=== PATIENT | female | born 1990 | race American Indian/Alaskan Native ===

== ENCOUNTER 2018-11-28 08:45 | Emergency (ER) | payer SELFPAY ==
[2018-11-28] MEDS ORDERED: NACL 0.9% 1000 ML 1,000 ML IV ONE (09:15)
[2018-11-28] MEDS ORDERED: ZOFRAN IV ONE (09:15)
[2018-11-28] MEDS ORDERED: NACL 0.9% 1000 ML 1,000 ML ONE (09:20)
[2018-11-28] MEDS ORDERED: ZOFRAN ONE (09:20)
--- NOTE | 2018-11-28 09:27 | Emergency Department Report ---
Pediatric NVD - HPI Chief Complaint: Nausea/Vomiting/Diarrhea Stated Complaint: NAUSEA/VOMITTING Time Seen by Provider: 11/28/18 09:07 Duration: 1 Day Nausea/Vomiting Severity: Moderate Diarrhea Severity: None Pain Location: Suprapubic (joint pain) Severity: Moderate Urine Output: Normal Symptoms: No Listless Behavior, No Bloody diarrhea, No Fever, No Able to Tolerate PO Fluids, No Recent Travel, No Family or Contacts with Similar Symptoms, No Rash Other History: 27-year-old male comes in for nausea vomiting with joint pain abdominal pain for 3 days. Patient admits to nausea increased thirstiness denies any dysuria admits to abdominal pain that's lower. Having vomiting. All started since yesterday medical history 1 para 0 last menstrual period was 11/07/2018. Patient can't recall anything that she is eaten that could've upset her stomach. He does admit that when she has her menses is when she has severe joint pain. ED Review of Systems ROS: Stated complaint: NAUSEA/VOMITTING Other details as noted in HPI Comment: All other systems reviewed and negative Gastrointestinal: abdominal pain, nausea, vomiting Musculoskeletal: arthralgia (joint pain) Pediatric Past Medical History - Surgeries & Procedures Additional Surgical History: CYST REMOVED FROM CHEEK Pediatric N/V/D - Exam General: Vital signs noted. No distress. Alert and acting appropriately. General: Listlessness: No, Lethargy: No, Well Appearing: No Peds HEENT: Rhinorrhea: No, Moist mucus membranes: Yes Peds neck exam: Adenopathy: No, Supple: Yes Lungs: Yes Clear Lung Sounds, Yes Good Air Exchange, No Wheezes, No Stridor, No Cough, No Nasal Flaring, No Retractions, No Use of Accessory Muscles Peds Heart: Heart Murmur: No, Hyperdynamic Precordium: No, Strong Pulses: Yes, Good Capillary Refill: Yes Peds abdomen: Abdominal Tenderness: No, Peritoneal Signs: No, Normal Bowel Soun ds: Yes, Distention: No Skin exam: Rash: No, Edema: No, Normal turgor: Yes ED Course Vital Signs 11/28/18 08:47 Temperature 97.9 F Pulse Rate 70 Respiratory 20 Rate Blood Pressure 134/88 [Right] O2 Sat by Pulse 99 Oximetry ED Medical Decision Making - Lab Data Result diagrams: 11/28/18 09:43 11/28/18 09:43 - Medical Decision Making 27-year-old female comes in for nausea vomiting, abdominal pain for 3 days. Patient was given Reglan normal saline IV Levaquin for what appears to be pyelonephritis. Patient be discharged home Levaquin 500 mg daily for the next 5 days with instructions to increase her fluid intake and advance her diet as tolerated. Patient could have Tylenol or ibuprofen for pain management. Critical care attestation.: If time is entered above; I have spent that time in minutes in the direct care of this critically ill patient, excluding procedure time. ED Disposition Clinical Impression: Pyelonephritis, Morbid obesity with BMI of 45.0-49.9, adult Disposition: DC- TO HOME OR SELFCARE Is pt being admited?: No Does the pt Need Aspirin: No Condition: Stable Instructions: Weight Management (ED), Acute Pyelonephritis (ED), Obesity (ED) Additional Instructions: Complete antibiotics as prescribed. Pain medication as needed. Please increase her water intake by 2-3 L daily. Please void after intercourse. Referrals: PRIMARY CARE, [Referring] - 3-5 Days Forms: Work/School Release Form(ED)
[2018-11-28 10:00] LABS: Basophils % (Auto) 0.3 % (0.0-1.8); Eosinophils % (Auto) 0.1 % (0.0-4.3); Hematocrit 40.5 % (30.3-42.9); Hemoglobin 13.9 gm/dl (10.1-14.3); Lymphocytes # (Auto) 1.7 K/mm3 (1.2-5.4); Lymphocytes % (Auto) 10.2 % (13.4-35.0); Mean Corpuscular HGB Conc 34 % (30-34); Mean Corpuscular Volume 92 fl (79-97); Monocytes % (Auto) 5.9 % (0.0-7.3); Platelet Count 271 K/mm3 (140-440); Red Cell Distribution Width 13.4 % (13.2-15.2)
[2018-11-28 10:18] LABS: Bacteria,Urine 1+ /HPF (Negative); Bilirubin,Urine NEG (Negative); Blood,Urine MOD (Negative); Color,Urine Yellow (Yellow); Mucus,Urine FEW /HPF; Urobilinogen,Urine < 2.0 mg/dL (<2.0)
[2018-11-28 10:23] LABS: Alanine Aminotransferase 15 units/L (7-56); BUN/Creatinine Ratio 16; Blood Urea Nitrogen 14 mg/dL (7-17); Hemolysis Index 12
[2018-11-28] MEDS ORDERED: TORADOL IM ONE (10:52)
[2018-11-28] MEDS ORDERED: REGLAN IV ONE (11:02)
[2018-11-28] MEDS ORDERED: LEVAQUIN 500MG/100ML 500 MG/100 ML BAG IV ONE (11:05)
[2018-11-28 11:13] VITALS: BP 125/72
[2018-11-28] MEDS ORDERED: MORPHINE ONE (11:32)
[2018-11-28] MEDS ORDERED: TORADOL IV ONE (11:36)
[2018-11-28] MEDS ORDERED: MORPHINE IV ONE (11:36)
== END 2018-11-28 13:26 | disposition home or self-care (01) ==
LOC: ED 08:45
DX: N12 Tubulo-interstitial nephritis, not specified as acute or chronic (principal); E66.01 Morbid (severe) obesity due to excess calories; Z68.42 Body mass index [BMI] 45.0-49.9, adult
CPT/HCPCS: 36415; 80053; 81001; 83690; 84702; 85025; 87086; 96361; 96365; 96375; 99283; J1885; J1956; J2270; J2405; J2765; J7030

== ENCOUNTER 2018-11-29 18:56 | Inpatient (IN) | payer OTHER ==
--- NOTE | 2018-11-29 19:15 | Emergency Department Report ---
ED GI Bleed HPI - General Chief complaint: Nausea/Vomiting/Diarrhea Stated complaint: VOMITING BLOOD Time Seen by Provider: 11/29/18 19:01 Source: patient Mode of arrival: Ambulatory Limitations: No Limitations - History of Present Illness Initial comments: Patient is a 28-year-old female that presents emergency room for nausea vomiting and vomiting blood 3 days. Patient states she was seen here yesterday and forgot to mention that to the caregiver. Patient was diagnosed with pyelonephritis and a UTI and given ibuprofen and Levaquin. Patient's symptoms are worsening. Patient states she is not able to hold anything down for 3 days.. MD complaint: gross hematemesis -: Sudden, days(s) Radiation: suprapubic Severity scale (0 -10): 3 Quality: dull Consistency: constant Improves with: none Worsens with: none Associated Symptoms: abdominal pain, nausea, vomiting. denies: epistaxis, fever/chills, headaches, loss of appetite, malaise, easy bruising, rash, other bleeding, shortness of breath, syncope, weakness - Related Data Previous Rx's Medication Instructions Recorded Last Taken Type Ibuprofen [Motrin 800 MG tab] 800 mg PO Q8HR PRN #30 tablet 11/28/18 11/29/18 Rx levoFLOXacin [Levaquin TAB] 500 mg PO QDAY 5 Days #5 tablet 11/28/18 11/29/18 Rx Allergies Allergy/AdvReac Type Severity Reaction Status Date / Time No Known Allergies Allergy Verified 11/28/18 08:47 ED Review of Systems ROS: Stated complaint: VOMITING BLOOD Other details as noted in HPI Constitutional: denies: chills, fever Eyes: denies: eye pain, eye discharge, vision change ENT: denies: ear pain, throat pain Respiratory: denies: cough, shortness of breath, wheezing Cardiovascular: denies: chest pain, palpitations Endocrine: no symptoms reported Gastrointestinal: abdominal pain, nausea, vomiting, hematemesis. denies: diarrhea, melena Genitourinary: denies: urgency, dysuria, discharge Musculoskeletal: denies: back pain, joint swelling, arthralgia Skin: denies: rash, lesions Neurological: denies: headache, weakness, paresthesias Psychiatric: denies: anxiety, depression Hematological/Lymphatic: denies: easy bleeding, easy bruising ED Past Medical Hx - Past Medical History Previous Medical History?: No - Surgical History Past Surgical History?: Yes Additional Surgical History: CYST REMOVED FROM CHEEK - Family History Family history: no significant - Social History Smoking Status: Never Smoker Substance Use Type: None - Medications Home Medications: Home Medications Medication Instructions Recorded Confirmed Last Taken Type Ibuprofen [Motrin 800 MG tab] 800 mg PO Q8HR PRN #30 tablet 11/28/18 11/29/18 11/29/18 Rx levoFLOXacin [Levaquin TAB] 500 mg PO QDAY 5 Days #5 tablet 11/28/18 11/29/18 11/29/18 Rx ED Physical Exam - General Limitations: No Limitations General appearance: alert, in no apparent distress - Head Head exam: Present: atraumatic, normocephalic - Eye Eye exam: Present: normal appearance - ENT ENT exam: Present: mucous membranes moist - Neck Neck exam: Present: normal inspection - Respiratory Respiratory exam: Present: normal lung sounds bilaterally. Absent: respiratory distress, wheezes, rales - Cardiovascular Cardiovascular Exam: Present: regular rate, normal rhythm. Absent: systolic murmur, diastolic murmur, rubs, gallop - GI/Abdominal GI/Abdominal exam: Present: soft, normal bowel sounds. Absent: distended, tenderness, guarding - Extremities Exam Extremities exam: Present: normal inspection - Back Exam Back exam: Present: normal inspection - Neurological Exam Neurological exam: Present: alert, oriented X3 - Psychiatric Psychiatric exam: Present: normal affect, normal mood - Skin Skin exam: Present: warm, dry, intact, normal color. Absent: rash ED Course Vital Signs 11/29/18 11/29/18 11/29/18 19:15 19:46 21:25 Temperature 98.4 F Pulse Rate 60 52 L 62 Respiratory 16 18 14 Rate Blood Pressure 139/84 140/81 [Left] O2 Sat by Pulse 100 100 100 Oximetry - Reevaluation(s) Reevaluation #1: Discussed plan of care and by mouth challenge the patient. Patient was not able to tolerate by mouth challenge. 11/29/18 21:25 Reevaluation #2: Discussed all results with patient. Patient will be admitted to the hospitalist service. Patient agrees to plan of care. 11/29/18 22:52 - Consultations Consultation #1: Discussed case with Dr. Hickman, GI. Dr. Hickman recommends the patient tolerate by mouth intake patient could be discharged home with follow-up with GI as an outpatient. But patient unable to tolerate by mouth challenge, the patient to be admitted to the hospitalist service and Dr. Hickman will see the patient in the morning for an endoscopy and patient nothing by mouth after midnight. 11/29/18 21:14 Consultation #2: Hospitalist consulted for admission. Hospitalist to admit patient. Hospitalist to assume care patient. 11/29/18 22:52 ED Medical Decision Making - Lab Data Result diagrams: 11/29/18 19:26 11/29/18 19:26 - Radiology Data Radiology results: report reviewed CT ABDOMEN AND PELVIS WITHOUT CONTRAST INDICATION: Pelvic pain for 3 to 4 days CONTRAST: Without IV COMPARISON: None available. All CT scans at this location are performed using CT dose reduction for ALARA by means of automated exposure control. NOTE: Resolution is decreased and artifact is introduced by the patient's size. FINDINGS: Lung bases show mild diffuse increased interstitial markings which probably is chronic. Mild scarring is seen in the right base. No pneumoperitoneum is seen. Gallbladder shows probable sludge but no obvious calculi or wall thickening. No biliary dilatation is seen. Pancreas shows no obvious abnormalities. No masses are seen. No evidence of bowel obstruction is noted. Appendix appears within normal limits. Only minimal free fluid is seen in the pelvis. The left ovary appears prominent and likely contains at least 2 cysts measuring up to 0.7 cm each with the ovary measuring approximately 4.1 cm. No urinary tract calculi or evidence of obstruction are seen. No inflammatory changes are noted. No significant abdominal wall hernia is noted. IMPRESSION: 1. Probable left ovarian cysts as above 2. No definite acute abnormalities are seen - Medical Decision Making Patient is a 28-year-old female that presents emergency room with complaints of abdominal pain and nausea vomiting and vomiting blood. Patient states about blood for 3 days. Patient was seen yesterday and diagnosed with pyelonephritis. Patient has been taking ibuprofen and Levaquin. Patient he will need a serious 3.9 and today is 3.1. GI consult and recommends admission for an EGD. Patient admitted to the hospitalist service. patient's labs from yesterday reviewed - Differential Diagnosis opening blood. Abdominal pain.The. UTI. Critical Care Time: Yes Critical care attestation.: If time is entered above; I have spent that time in minutes in the direct care of this critically ill patient, excluding procedure time. Critical Care Time: 45 minutes ED Disposition Clinical Impression: Pyelonephritis, Lower abdominal pain Intractable nausea and vomiting Qualifiers: Vomiting type: unspecified Qualified Code(s): R11.2 - Nausea with vomiting, unspecified Vomiting blood Qualifiers: Nausea presence: with nausea Qualified Code(s): K92.0 - Hematemesis Disposition: 09 OP ADMIT IP TO THIS HOSP Is pt being admited?: Yes Does the pt Need Aspirin: No Condition: Critical Time of Disposition: 22:52
[2018-11-29] MEDS ORDERED: NACL 0.9% 1000 ML 1,000 ML IV ONE (19:17)
[2018-11-29] MEDS ORDERED: ZOFRAN IV ONE (19:17)
[2018-11-29] MEDS ORDERED: ZOFRAN ONE (19:24)
[2018-11-29] MEDS ORDERED: NACL 0.9% 1000 ML 1,000 ML ONE (19:24)
[2018-11-29 19:43] LABS: Basophils % (Auto) 0.4 % (0.0-1.8); Hematocrit 38.3 % (30.3-42.9); Hemoglobin 13.1 gm/dl (10.1-14.3); Lymphocytes # (Auto) 1.7 K/mm3 (1.2-5.4); Lymphocytes % (Auto) 13.5 % (13.4-35.0); Mean Corpuscular HGB Conc 34 % (30-34); Mean Corpuscular Volume 93 fl (79-97); Monocytes # (Auto) 0.6 K/mm3 (0.0-0.8); Monocytes % (Auto) 4.6 % (0.0-7.3); Platelet Count 255 K/mm3 (140-440); Red Blood Count 4.14 M/mm3 (3.65-5.03); Red Cell Distribution Width 13.2 % (13.2-15.2)
[2018-11-29 20:01] LABS: Alanine Aminotransferase 14 units/L (7-56); Albumin 3.8 g/dL (3.9-5); BUN/Creatinine Ratio 12; Blood Urea Nitrogen 12 mg/dL (7-17); Calcium 8.8 mg/dL (8.4-10.2); Hemolysis Index 14
[2018-11-29 20:13] LABS: Bilirubin,Direct < 0.2 mg/dL (0-0.2)
[2018-11-29] MEDS ORDERED: DILAUDID IV ONE (21:19)
[2018-11-29] MEDS ORDERED: MAXIPIME/NS 1 GM/100 ML 1 GM/100 ML BAG IV ONE (21:31)
--- NOTE | 2018-11-29 22:35 | Cat Scan Report ---
CT ABDOMEN AND PELVIS WITHOUT CONTRAST INDICATION: Pelvic pain for 3 to 4 days CONTRAST: Without IV COMPARISON: None available. All CT scans at this location are performed using CT dose reduction for ALARA by means of automated e xposure control. NOTE: Resolution is decreased and artifact is introduced by the patient's size. FINDINGS: Lung bases show mild diffuse increased interstitial markings which probably is chronic. Mil d scarring is seen in the right base. No pneumoperitoneum is seen. Gallbladder shows probable sludge but no obvious calculi or wall thickening. No biliary dilatation is seen. Pancreas shows no obvious a bnormalities. No masses are seen. No evidence of bowel obstruction is noted. Appendix appears within normal limits. Only minimal free fluid is seen in the pelvis. The left ovary appears prominent and li hunter contains at least 2 cysts measuring up to 0.7 cm each with the ovary measuring approximately 4.1 cm. No urinary tract calculi or evidence of obstruction are seen. No inflammatory changes are noted. No significant abdominal wall hernia is noted. IMPRESSION: 1. Probable left ovarian cysts as above 2. No definite acute abnormalities are seen Signer Name: Vinay Peng MD Signed: 11/29/2018 10:30 PM Workstation Name: [id number]
[2018-11-29] MEDS ORDERED: ZOFRAN IV PRN (23:00)
[2018-11-29] MEDS ORDERED: SODIUM CHLORIDE FLUSH SYRINGE 10 ML IV PRN (23:00)
--- NOTE | 2018-11-29 23:00 | History and Physical Report ---
<JAIMEE PINO - Last Filed: 11/30/18 02:16> History of Present Illness Date of examination: 11/29/18 Date of admission: 11/29/2018 Chief complaint: Nausea and vomiting 3 days History of present illness: Patient is a 28-year-old female with PMHx of obesity who presents to the ER with c/o for nausea and vomiting blood 3 days. Patient states that she has been vomiting dark blood for 3 days, she cannot keep any food or fluid down. Patient states that she was seen in the ER yesterday and was diagnosed UTI and pyelonephritis, she was given ibuprofen and Levaquin and she was discharged home with prescriptions. Patient states that today her symptoms worsen, she continues to vomiting, and addition she had lower pelvic pain that radiates to her right thigh causing severe discomfort, she decided to come to the ER for evaluation. Patient denies headache, denies dizziness, denies cough, denies SOB, she denies any fever or chills, GI is consulted and she is admitted for further evaluation and treatments. Past History Past Medical History: No medical history Past Surgical History: No surgical history Social history: no significant social history Family history: no significant family history Medications and Allergies Allergies Allergy/AdvReac Type Severity Reaction Status Date / Time No Known Allergies Allergy Verified 11/28/18 08:47 Home Medications Medication Instructions Recorded Confirmed Last Taken Type Ibuprofen [Motrin 800 MG tab] 800 mg PO Q8HR PRN #30 tablet 11/28/18 11/29/18 11/29/18 Rx levoFLOXacin [Levaquin TAB] 500 mg PO QDAY 5 Days #5 tablet 11/28/18 11/29/18 11/29/18 Rx Active Meds: Active Medications Pantoprazole Sodium 80 mg/ (Sodium Chloride) 100 mls @ 10 mls/hr IV DIRECT MARISOL Review of Systems All systems: negative Ears, nose, mouth and throat: decreased hearing Gastrointestinal: abdominal pain, nausea, vomiting Genitourinary Female: pelvic pain Exam - Constitutional Vitals: Temp Pulse Resp BP Pulse Ox 98.4 F 62 14 140/81 100 11/29/18 19:15 11/29/18 21:25 11/29/18 21:25 11/29/18 21:25 11/29/18 21:25 General appearance: Present: no acute distress - EENT Eyes: Present: EOM intact ENT: hearing intact - Neck Neck: Present: supple, normal ROM - Respiratory Respiratory effort: normal Respiratory: bilateral: CTA - Cardiovascular Rhythm: regular Heart Sounds: Present: S1 & S2 - Extremities Extremities: no ischemia Peripheral Pulses: within normal limits - Abdominal General gastrointestinal: Present: tender Localized gastrointestinal: tender: suprapubic Female genitourinary: Present: deferred, other (no CV tenderness) - Rectal Rectal Exam: deferred - Integumentary Integumentary: Present: clear, warm, dry - Musculoskeletal Musculoskeletal: strength equal bilaterally - Psychiatric Psychiatric: appropriate mood/affect - Neurologic Neurologic: moves all extremities Results - Labs CBC & Chem 7: 11/29/18 19:26 11/29/18 19:26 Labs: Laboratory Last Values WBC 12.3 K/mm3 (4.5-11.0) H 11/29/18 19: RBC 4.14 M/mm3 (3.65-5.03) 11/29/18 19: Hgb 13.1 gm/dl (10.1-14.3) 11/29/18 19: Hct 38.3 % (30.3-42.9) 11/29/18 19: MCV 93 fl (79-97) 11/29/18 19: MCH 32 pg (28-32) 11/29/18 19: MCHC 34 % (30-34) 11/29/18 19: RDW 13.2 % (13.2-15.2) 11/29/18 19: Plt Count 255 K/mm3 (140-440) 11/29/18 19: Lymph % (Auto) 13.5 % (13.4-35.0) 11/29/18 19: Motley % (Auto) 4.6 % (0.0-7.3) 11/29/18 19: Eos % (Auto) 0.0 % (0.0-4.3) 11/29/18 19: Baso % (Auto) 0.4 % (0.0-1.8) 11/29/18 19: Lymph # 1.7 K/mm3 (1.2-5.4) 11/29/18 19: Motley # 0.6 K/mm3 (0.0-0.8) 07/13/19 19:26 Eos # 0.0 K/mm3 (0.0-0.4) 11/29/18 19:26 Baso # 0.0 K/mm3 (0.0-0.1) 11/29/18 19:26 Seg Neutrophils % 81.5 % (40.0-70.0) H 11/29/18 19:26 Seg Neutrophils # 10.0 K/mm3 (1.8-7.7) H 11/29/18 19:26 Sodium 137 mmol/L (137-145) 11/29/18 19:26 Potassium 3.8 mmol/L (3.6-5.0) 11/29/18 19: Chloride 101.6 mmol/L (98-107) 11/29/18 19: Carbon Dioxide 22 mmol/L (22-30) 11/29/18 19:26 17 mmol/L 11/29/18 19:26 BUN 12 mg/dL (7-17) 11/29/18 19: 1.0 mg/dL (0.7-1.2) 11/29/18 19:26 Estimated GFR > 60 ml/min 11/29/18 19:26 12 % 11/29/18 19:26 Glucose 102 mg/dL (65-100) H 11/29/18 19: Calcium 8.8 mg/dL (8.4-10.2) 11/29/18 19:26 0.30 mg/dL (0.1-1.2) 11/29/18 19:26 < 0.2 mg/dL (0-0.2) 11/29/18 19: 0.1 mg/dL 11/29/18 19:26 AST 12 units/L (5-40) 11/29/18 19:26 ALT 14 units/L (7-56) 11/29/18 19:26 67 units/L (35-129) 11/29/18 19:26 6.8 g/dL (6.3-8.2) 11/29/18 19:26 3.8 g/dL (3.9-5) L 11/29/18 19:26 1.3 % 11/29/18 19:26 HCG, Qual Negative (Negative) 11/29/18 19:26 Assessment and Plan Assessment and plan: 1. Hematemesis 2. Acute nausea and vomiting 3. UTI 3. Obesity Plan: Patient is addicted to med/surg for n/v Consult GI for evaluation Continue Levaquin IV daily Zofran PRN for nausea and vomiting IV Dilaudid PRN for pain Visit and course Plan discussed with patient and family didn't Understand Patient's condition and plan of care discussed with Dr. Teran Advance Directives: Yes VTE prophylaxis?: Mechanical Plan of care discussed with patient/family: Yes <NELLIE TERAN - Last Filed: 11/30/18 04:32> History of Present Illness Date of admission: 11/29/18 23:00 Medications and Allergies Active Meds: Active Medications Acetaminophen (Tylenol) 650 mg PO Q4H PRN PRN Reason: Pain MILD(1-3)/Fever >100.5/LAUREANO Last Admin: 11/30/18 02:01 Dose: 650 mg Documented by: Pantoprazole Sodium 80 mg/ (Sodium Chloride) 100 mls @ 10 mls/hr IV DIRECT [facility] Last Admin: 11/30/18 01:38 Dose: 8 mg/hr, 10 mls/hr Documented by: Ondansetron HCl (Zofran) 4 mg IV Q8H PRN PRN Reason: Nausea And Vomiting Sodium Chloride (Sodium Chloride Flush Syringe 10 Ml) 10 ml IV BID [facility] Last Admin: 11/29/18 23:05 Dose: 10 ml Documented by: Sodium Chloride (Sodium Chloride Flush Syringe 10 Ml) 10 ml IV PRN PRN PRN Reason: LINE FLUSH Exam - Constitutional Vitals: Temp Pulse Resp BP Pulse Ox 98.0 F 50 L 18 137/87 98 11/30/18 00:43 11/30/18 00:43 11/30/18 00:43 11/30/18 00:43 11/30/18 00:43 Results - Labs CBC & Chem 7: 11/29/18 19:26 11/29/18 19:26 Labs: Laboratory Last Values WBC 12.3 K/mm3 (4.5-11.0) H 11/29/18 19:26 RBC 4.14 M/mm3 (3.65-5.03) 11/29/18 19:26 Hgb 13.1 gm/dl (10.1-14.3) 11/29/18 19:26 Hct 38.3 % (30.3-42.9) 11/29/18 19: MCV 93 fl (79-97) 11/29/18 19: MCH 32 pg (28-32) 11/29/18 19: MCHC 34 % (30-34) 11/29/18 19: RDW 13.2 % (13.2-15.2) 11/29/18 19: Plt Count 255 K/mm3 (140-440) 11/29/18 19: Lymph % (Auto) 13.5 % (13.4-35.0) 11/29/18 19: Motley % (Auto) 4.6 % (0.0-7.3) 11/29/18: Eos % (Auto) 0.0 % (0.0-4.3) 11/29/18: Baso % (Auto) 0.4 % (0.0-1.8) 11/29/18 19: Lymph # 1.7 K/mm3 (1.2-5.4) 11/29/18 19: Motley # 0.6 K/mm3 (0.0-0.8) 11/29/18 19: Eos # 0.0 K/mm3 (0.0-0.4) 11/29/18 19: Baso # 0.0 K/mm3 (0.0-0.1) 11/29/18 19: Seg Neutrophils % 81.5 % (40.0-70.0) H 11/29/18 19: Seg Neutrophils # 10.0 K/mm3 (1.8-7.7) H 11/29/18 19: Sodium 137 mmol/L (137-145) 11/29/18 19: Potassium 3.8 mmol/L (3.6-5.0) 11/29/18 19: Chloride 101.6 mmol/L (98-107) 11/29/18 19: Carbon Dioxide 22 mmol/L (22-30) 11/29/18 19:26 17 mmol/L 11/29/18 19: BUN 12 mg/dL (7-17) 11/29/18 19:26 1.0 mg/dL (0.7-1.2) 11/29/18 19: Estimated GFR > 60 ml/min 11/29/18 19:26 12 % 11/29/18 19:26 Glucose 102 mg/dL (65-100) H 11/29/18: Calcium 8.8 mg/dL (8.4-10.2) 11/29/18 19: 0.30 mg/dL (0.1-1.2) 11/29/18: < 0.2 mg/dL (0-0.2) 11/29/18 19: 0.1 mg/dL 11/29/18: AST 12 units/L (5-40) 11/29/18: ALT 14 units/L (7-56) 11/29/18: 67 units/L (35-129) 11/29/18 19: 6.8 g/dL (6.3-8.2) 11/29/18: 3.8 g/dL (3.9-5) L 11/29/18 19: 1.3 % 11/29/18 19: HCG, Qual Negative (Negative) 11/29/18 19:26 Assessment and Plan Assessment and plan: 28-year-old woman with no medical problem includes emergency room with complains of nausea and vomiting and hematemesis 3 days, multiple episodes. Continue Protonix drip, probably Denise-Pang tear. UA specimen obtained yesterday was contaminated, repeat UA, s/p antibiotic. Add IV fluid. 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
[2018-11-29] MEDS: SODIUM CHLORIDE FLUSH SYRINGE 10 ML IV SCH (23:05)
[2018-11-30] MEDS: PROTONIX 80 MG in NACL 0.9% 100 ML IV SCH ×2 (01:38→13:10)
[2018-11-30] MEDS: TYLENOL PO PRN ×4 (02:01→20:48)
[2018-11-30] MEDS ORDERED: NACL 0.9% 1000 ML 1,000 ML IV SCH (05:00)
[2018-11-30] MEDS: NACL 0.9% 1000 ML 1,000 ML IV SCH ×2 (09:02→17:01)
[2018-11-30 10:22] LABS: Bacteria,Urine 1+ /HPF (Negative); Bilirubin,Urine NEG (Negative); Blood,Urine LG (Negative); Color,Urine Yellow (Yellow); Mucus,Urine FEW /HPF; Protein,Urine <15 mg/dL mg/dL (Negative); Urobilinogen,Urine < 2.0 mg/dL (<2.0)
[2018-11-30] MEDS: SODIUM CHLORIDE FLUSH SYRINGE 10 ML IV SCH ×2 (13:18→23:15)
--- NOTE | 2018-11-30 14:13 | Progress Note ---
Assessment and Plan Assessment and plan: Hematemesis? Acute nausea and vomiting UTI Obesity Plan: Consult GI for evaluation Continue Levaquin IV daily Zofran PRN for nausea and vomiting IV Dilaudid PRN for pain History Interval history: abdo pain and nausea is improving Hospitalist Physical - Physical exam Narrative exam: General.: Moderate distress Extra ocular muscles intact, no lymphadenopathy Neck: supple Cardiac: S1-S2 heard Lungs: clear to auscultation bilaterally Abdomen: soft , flank tenderness Extremities: no edema clubbing or cyanosis Skin: no rash or lesions Neurologic: no gross focal deficits Psych: calm, and cooperative - Constitutional Vitals: Temp Pulse Resp BP Pulse Ox 98.2 F 54 L 16 128/68 95 11/30/18 11:51 11/30/18 11:51 11/30/18 11:51 11/30/18 11:51 11/30/18 11:51 General appearance: Present: no acute distress Results - Labs CBC & Chem 7: 12/01/18 10:48 11/29/18 19:26 Labs: Laboratory Last Values WBC 12.3 K/mm3 (4.5-11.0) H 11/29/18 19:26 RBC 4.14 M/mm3 (3.65-5.03) 11/29/18 19:26 Hgb 13.1 gm/dl (10.1-14.3) 11/29/18 19:26 Hct 38.3 % (30.3-42.9) 11/29/18 19:26 MCV 93 fl (79-97) 11/29/18 19:26 MCH 32 pg (28-32) 11/29/18 19:26 MCHC 34 % (30-34) 11/29/18 19:26 RDW 13.2 % (13.2-15.2) 11/29/18 19:26 Plt Count 255 K/mm3 (140-440) 11/29/18 19:26 Lymph % (Auto) 13.5 % (13.4-35.0) 11/29/18 19:26 Davison % (Auto) 4.6 % (0.0-7.3) 11/29/18 19:26 Eos % (Auto) 0.0 % (0.0-4.3) 11/29/18 19:26 Baso % (Auto) 0.4 % (0.0-1.8) 11/29/18 19:26 Lymph # 1.7 K/mm3 (1.2-5.4) 11/29/18 19:26 Davison # 0.6 K/mm3 (0.0-0.8) 11/29/18 19:26 Eos # 0.0 K/mm3 (0.0-0.4) 11/29/18 19:26 Baso # 0.0 K/mm3 (0.0-0.1) 11/29/18 19:26 Seg Neutrophils % 81.5 % (40.0-70.0) H 11/29/18 19:26 Seg Neutrophils # 10.0 K/mm3 (1.8-7.7) H 11/29/18 19:26 Sodium 137 mmol/L (137-145) 11/29/18 19:26 Potassium 3.8 mmol/L (3.6-5.0) 11/29/18 19: Chloride 101.6 mmol/L (98-107) 11/29/18 19:26 Carbon Dioxide 22 mmol/L (22-30) 11/29/18 19:26 17 mmol/L 11/29/18 19:26 BUN 12 mg/dL (7-17) 11/29/18 19:26 1.0 mg/dL (0.7-1.2) 11/29/18 19:26 Estimated GFR > 60 ml/min 11/29/18 19:26 12 % 11/29/18 19:26 Glucose 102 mg/dL (65-100) H 11/29/18 19:26 Calcium 8.8 mg/dL (8.4-10.2) 11/29/18 19:26 0.30 mg/dL (0.1-1.2) 11/29/18 19:26 < 0.2 mg/dL (0-0.2) 11/29/18 19:26 0.1 mg/dL 11/29/18 19:26 AST 12 units/L (5-40) 11/29/18 19:26 ALT 14 units/L (7-56) 11/29/18 19:26 67 units/L (35-129) 11/29/18 19:26 6.8 g/dL (6.3-8.2) 07/13/19 19:26 3.8 g/dL (3.9-5) L 11/29/18 19:26 1.3 % 11/29/18 19:26 HCG, Qual Negative (Negative) 11/29/18 19:26 Yellow (Yellow) 11/30/18 10:00 Clear (Clear) 11/30/18 10:00 6.0 (5.0-7.0) 11/30/18 10:00 Ur Specific [place] 1.019 (1.003-1.030) 11/30/18 10:00 <15 mg/dl mg/dL (Negative) 11/30/18 10:00 Neg mg/dL (Negative) 11/30/18 10:00 Neg mg/dL (Negative) 11/30/18 10:00 Lg (Negative) 11/30/18 10:00 Neg (Negative) 11/30/18 10:00 Neg (Negative) 11/30/18 10:00 < 2.0 mg/dL (<2.0) 11/30/18 10:00 Ur Leukocyte Esterase Tr (Negative) 11/30/18 10:00 7.0 /HPF (0.0-6.0) H 11/30/18 10:00 62.0 /HPF (0.0-6.0) 11/30/18 10:00 U Epithel Cells (Auto) 5.0 /HPF (0-13.0) 11/30/18 10:00 1+ /HPF (Negative) 11/30/18 10:00 Few /HPF 11/30/18 10:00 Active Medications - Current Medications Current Medications: Generic Name Dose Route Start Last Admin Trade Name Freq PRN Reason Stop Dose Admin Acetaminophen 650 mg 11/29/18 23:00 11/30/18 09:34 Tylenol PO 650 mg Q4H PRN Administration Pain MILD(1-3)/Fever >100.5/LAUREANO Pantoprazole Sodium 80 mg/ 100 mls @ 10 mls/hr 11/29/18 22:00 11/30/18 13:10 Sodium Chloride IV 8 mg/hr DIRECT MARISOL 10 mls/hr Administration 8 MG/HR Sodium Chloride 1,000 mls @ 125 mls/hr 11/30/18 04:32 11/30/18 09:02 Nacl 0.9% 1000 Ml IV 125 mls/hr DIRECT MARISOL Administration Ondansetron HCl 4 mg 11/29/18 23:00 11/30/18 13:21 Zofran IV 4 mg Q8H PRN Administration Nausea And Vomiting Sodium Chloride 10 ml 11/29/18 23:00 11/30/18 13:18 Sodium Chloride Flush Syringe 10 Ml IV 10 ml BID MARISOL Administration Sodium Chloride 10 ml 11/29/18 23:00 Sodium Chloride Flush Syringe 10 Ml IV PRN PRN LINE FLUSH
[2018-11-30] MEDS: PERCOCET 5/325 PO PRN (23:11)
[2018-12-01] MEDS: PROTONIX 80 MG in NACL 0.9% 100 ML IV SCH (00:18)
[2018-12-01] MEDS: NACL 0.9% 1000 ML 1,000 ML IV SCH (02:54)
[2018-12-01 06:18] VITALS: BP 107/58
[2018-12-01] MEDS: PERCOCET 5/325 PO PRN (08:37)
--- NOTE | 2018-12-01 10:42 | Discharge Summary ---
Providers - Providers Date of Admission: 11/29/18 23:00 Attending physician: ZEUS LEHMAN MD 11/29/18 22:21 Consult to Physician [CONS] Stat Comment: Consulting Provider: ANIYA OAKLEY Physician Instructions: Reason For Exam: vomiting blood Primary care physician: MARIA A GRIMM Hospitalization Condition: Critical Hospital course: 28-year-old woman who presented to the hospital with flank tenderness, nausea or vomiting. -There was some concern of hematemesis, but she was seen by GI who did not feel she had hematemesis. She likely vomited some dark stuff that she ate. She had recent EGD that was negative, she had stable hemoglobin -rx w antibiotics for pyelonephritis, abdominal pain nausea vomiting improved. Diagnosis Hematemesis unlikely Acute nausea and vomiting UTI Obesity Disposition: - TO HOME OR SELFCARE Time spent for discharge: 33 mins Core Measure Documentation - Palliative Care Palliative Care/ Comfort Measures: Not Applicable - Core Measures Any of the following diagnoses?: none Exam - Constitutional Vitals: Temp Pulse Resp BP Pulse Ox 98.1 F 53 L 20 107/58 100 12/01/18 05:33 12/01/18 05:33 12/01/18 05:33 12/01/18 05:33 12/01/18 05:33 General appearance: Present: no acute distress, well-nourished - EENT Eyes: Present: PERRL ENT: hearing intact, clear oral mucosa - Neck Neck: Present: supple, normal ROM - Respiratory Respiratory effort: normal Respiratory: bilateral: CTA - Cardiovascular Heart Sounds: Present: S1 & S2. Absent: rub, click - Extremities Extremities: pulses symmetrical, No edema Peripheral Pulses: within normal limits - Abdominal General gastrointestinal: Present: soft, non-tender, non-distended, normal bowel sounds Female genitourinary: Present: normal - Integumentary Integumentary: Present: clear, warm, dry - Musculoskeletal Musculoskeletal: gait normal, strength equal bilaterally - Psychiatric Psychiatric: appropriate mood/affect, intact judgment & insight - Neurologic Neurologic: CNII-XII intact, moves all extremities Plan Follow up with: MARIA A GRIMM MD [Primary Care Provider] - 7 Days Prescriptions: oxyCODONE /ACETAMINOPHEN [Percocet 5/325 mg] 1 tab PO Q6H PRN #14 tablet PRN Reason: Pain, Moderate (4-6) Pantoprazole [Protonix] 40 mg PO QDAY #30 tablet
--- NOTE | 2018-12-01 10:50 | Gastroenterology Consultation ---
History of Present Illness - Reason for Consult Consult date: 12/01/18 UGIB Requesting physician: NORMA SÁNCHEZ III - History of Present Illness Patient is a 28 y/o female with PMH of obesity and recent UTI/pyelonephritis who presented to ED with N/V and bloody emesis, along with continued pelvic pain from UTI. GI has been consulted for UGIB. This morning patient was resting in bed w/o acute distress. Reports a small amount of bright red/dark red blood in emesis 2 days ago after having multiple episodes of N/V with non-bloody emesis x 2 days. No further active signs of bleeding since 11/29/18 per patient. No melena or hematochezia. States her pelvic pain is still present but improving. N/V now resolved. Denies fever, CP, SOB, wt loss, dysphagia, or LGI symptoms. Tolerating diet. No hx of PUD, liver disease, or previous EGD. Past History Past Medical History: other (obesity) Past Surgical History: No surgical history Social history: no significant social history Family history: no significant family history Medications and Allergies Allergies Allergy/AdvReac Type Severity Reaction Status Date / Time No Known Allergies Allergy Verified 11/28/18 08:47 Home Medications Medication Instructions Recorded Confirmed Last Taken Type Pantoprazole [Protonix] 40 mg PO QDAY #30 tablet 12/01/18 Unknown Rx oxyCODONE /ACETAMINOPHEN [Percocet 1 tab PO Q6H PRN #14 tablet 12/01/18 Unknown Rx 5/325 mg] Active Meds: Active Medications Acetaminophen (Tylenol) 650 mg PO Q4H PRN PRN Reason: Pain MILD(1-3)/Fever >100.5/LAUREANO Last Admin: 11/30/18 20:48 Dose: 650 mg Documented by: Pantoprazole Sodium 80 mg/ (Sodium Chloride) 100 mls @ 10 mls/hr IV DIRECT MARISOL Last Admin: 12/01/18 00:18 Dose: 8 mg/hr, 10 mls/hr Documented by: Sodium Chloride (Nacl 0.9% 1000 Ml) 1,000 mls @ 125 mls/hr IV DIRECT MARISOL Last Admin: 12/01/18 02:54 Dose: 125 mls/hr Documented by: Ondansetron HCl (Zofran) 4 mg IV Q8H PRN PRN Reason: Nausea And Vomiting Last Admin: 11/30/18 13:21 Dose: 4 mg Documented by: Oxycodone/Acetaminophen (Percocet 5/325) 1 tab PO Q6H PRN PRN Reason: Pain, Moderate (4-6) Last Admin: 12/01/18 08:37 Dose: 1 tab Documented by: Sodium Chloride (Sodium Chloride Flush Syringe 10 Ml) 10 ml IV BID MARISOL Last Admin: 11/30/18 23:15 Dose: 10 ml Documented by: Sodium Chloride (Sodium Chloride Flush Syringe 10 Ml) 10 ml IV PRN PRN PRN Reason: LINE FLUSH medications reviewed/updated as required Review of Systems - Review of Systems All systems: negative Gastrointestinal: abdominal pain (pelvic), nausea, vomiting, hematemesis Exam - Constitutional Vital Signs: Temp Pulse Resp BP Pulse Ox 98.1 F 53 L 20 107/58 100 12/01/18 05:33 12/01/18 05:33 12/01/18 05:33 12/01/18 05:33 12/01/18 05:33 General appearance: no acute distress, obese - EENT Eyes: PERRL, EOM intact ENT: hearing intact - Respiratory Respiratory effort: normal - Cardiovascular Rhythm: regular - Gastrointestinal General gastrointestinal: Present: soft, non-tender, non-distended, normal bowel sounds, other (obese) - Neurologic Neurological: alert and oriented x3 - Labs CBC & Chem 7: 11/29/18 19:26 11/29/18 19:26 Assessment and Plan 1.UGIB 2.hematemesis -H/H WNL (13.1/38.3) -continue to monitor H/H and transfuse as needed -no active signs of bleed. Last episode of hematemesis was 2 days ago per pt. No melena or hematochezia. -etiology-likely M-W tear given history -clinically, patient is stable with N/V now resolved and pelvic pain improving. -no plan for EGD at this time given no clinical evidence of significant GI bleeding -okay to resume diet -continue PPI (transition to PO BID) -continue supportive care -patient is okay to be d/c per GI standpoint on PPI with f/u in clinic -will sign off. please call if needed
[2018-12-01 11:09] LABS: Hematocrit 41.9 % (30.3-42.9); Hemoglobin 14.3 gm/dl (10.1-14.3)
--- NOTE | 2018-12-01 13:00 | Consultation ---
REFERRING PHYSICIAN: Evan Peng MD INDICATIONS: 1. Abdominal pain. 2. Nausea, vomiting. 3. Hematemesis. HISTORY OF PRESENT ILLNESS: The patient is a 28-year-old black female with history of obesity, been seen for hematemesis. The patient reports she has had nausea and vomiting for 3 days. She reports of dark blood stool. She denies any bright red blood per rectum or melena. She denies any bright red hematemesis. She reports she had come to the Emergency Room where she was diagnosed with urinary tract infection. She reports she was given initially Levaquin and ibuprofen. Her symptoms worsened and so she came back to the Emergency Room and subsequently was admitted. She denies any history of GI bleed in the past. Denies any other specific complaints. PAST MEDICAL HISTORY: Negative. MEDICATIONS: Reviewed and updated in chart. ALLERGIES: No known drug allergies. SOCIAL HISTORY: Denies alcohol, tobacco or drug abuse. FAMILY HISTORY: Negative for colon cancer, IBD, or liver disease. REVIEW OF SYSTEMS: GENERAL: Reports mild weakness. HEENT: No visual complaints or tinnitus. PULMONARY: Denies shortness of breath or cough. No chest pain. GASTROINTESTINAL: Reports hematemesis and nausea, vomiting. All points of 13-point review of systems otherwise negative. PHYSICAL EXAMINATION: VITAL SIGNS: Temperature of 98.0, pulse 50, respirations 18, blood pressure 137/87. GENERAL: Fairly nourished, somewhat obese black female, in no acute distress. HEENT: Pupils equal, round, and reactive. PULMONARY: Clear to auscultation bilaterally. CARDIOVASCULAR: Regular rhythm. Normal S1, S2. ABDOMEN: Positive bowel sounds, soft. SKIN: No obvious rashes. LABORATORY DATA: Pertinent for white count of 12.3, hemoglobin and hematocrit 13.1 and 38.3, platelet count of 255. Chem-7 within normal limits. LFTs within normal limits. ASSESSMENT: A 28-year-old black female with no significant past medical history, now has had 3 days of nausea, vomiting with coffee emesis. Her H and H is stable. She was diagnosed with pyelonephritis, which most likely led to her nausea, vomiting and other symptoms. She possibly has some Denise-Pang tear, but her H and H is stable and showed no further signs of active bleeding. Management is noted below. PLAN: 1. Follow hematocrit and transfuse as needed. 2. PPI daily. 3. Pyelonephritis. Management per primary team. 4. Advance diet. 5. If H and H decreased or further signs of bleeding, we will plan for EGD. 6. If H and H is stable later today or in the a.m., okay to discharge from GI standpoint. JOB# [id number] CAB/NTS
== END 2018-12-01 13:30 | disposition home or self-care (01) | DRG 690 ==
LOC: ED 18:56 → 3A 23:00
PROVIDERS: ADMIT Internal Medicine; ATTEND Internal Medicine
DX: N12 Tubulo-interstitial nephritis, not specified as acute or chronic (principal); K92.0 Hematemesis; E66.9 Obesity, unspecified; Z68.42 Body mass index [BMI] 45.0-49.9, adult
CPT/HCPCS: 36415; 74176; 80048; 80076; 81001; 84703; 85014; 85018; 85025; 96361; 96365; 96366; 96375; 99406; G0378; C9113; J0692; J1170; J2405; J7030

== ENCOUNTER 2019-06-28 15:59 | Emergency (ER) | payer OTHER ==
[2019-06-28] MEDS ORDERED: ONDANSETRON 4 MG ODT TAB PO ONE (17:58)
--- NOTE | 2019-06-28 17:58 | Event Note ---
ED Screening Note ED Screening Note: n/v/d that began 4 days ago abd discomfort no sick contacts no spoiled foods no recent travel no fever no urinary sx pmhx gerd no allergies to meds +drink daily +marijuana +tobacco This initial assessment/diagnostic orders/clinical plan/treatment(s) is/are subject to change based on patients health status, clinical progression and re- assessment by fellow clinical providers in the ED. Further treatment and workup at subsequent clinical providers discretion. Patient/guardian urged not to elope from the ED as their condition may be serious if not clinically assessed and managed. Initial orders include: labs, UA, urine preg zofran given
[2019-06-28] MEDS ORDERED: ONDANSETRON 4 MG ODT TAB ONE (18:00)
[2019-06-28 19:02] LABS: HCG Qualitative,Urine Negative (Negative)
[2019-06-28 19:05] LABS: Bilirubin,Urine NEG (Negative); Blood,Urine MOD (Negative); Color,Urine Yellow (Yellow); Mucus,Urine FEW /HPF; Urobilinogen,Urine < 2.0 mg/dL (<2.0)
[2019-06-28] MEDS ORDERED: FAMOTIDINE 20 MG/2 ML INJ IV ONE (19:56)
[2019-06-28] MEDS ORDERED: SODIUM CHLORIDE 0.9% 1000 ML 1,000 ML IV ONE (19:56)
[2019-06-28] MEDS ORDERED: MORPHINE 4 MG/1 ML INJ IV ONE (19:56)
[2019-06-28] MEDS ORDERED: ONDANSETRON 4 MG/2 ML INJ IV ONE (19:57)
[2019-06-28 20:10] LABS: Basophils # (Auto) 0.1 K/mm3 (0.0-0.1); Basophils % (Auto) 0.4 % (0.0-1.8); Hemoglobin 14.2 gm/dl (10.1-14.3); Lymphocytes # (Auto) 1.3 K/mm3 (1.2-5.4); Lymphocytes % (Auto) 9.3 % (13.4-35.0); Mean Corpuscular HGB Conc 35 % (30-34); Mean Corpuscular Volume 94 fl (79-97); Monocytes # (Auto) 0.4 K/mm3 (0.0-0.8); Monocytes % (Auto) 3.2 % (0.0-7.3); Platelet Count 288 K/mm3 (140-440); Red Blood Count 4.37 M/mm3 (3.65-5.03); Red Cell Distribution Width 13.5 % (13.2-15.2)
[2019-06-28 20:26] LABS: Alanine Aminotransferase 17 units/L (7-56); Albumin 4.2 g/dL (3.9-5); BUN/Creatinine Ratio 17; Blood Urea Nitrogen 17 mg/dL (7-17); Calcium 9.3 mg/dL (8.4-10.2); Hemolysis Index 29
[2019-06-28] MEDS ORDERED: diphenhydrAMINE 50 MG/ML VIAL IV ONE (22:49)
[2019-06-28] MEDS ORDERED: METOCLOPRAMIDE 10 MG/2 ML INJ IV ONE (22:49)
--- NOTE | 2019-06-28 23:14 | Emergency Department Report ---
ED N/V/D HPI - General Chief complaint: Abdominal Pain Stated complaint: VOMIT Time Seen by Provider: 06/28/19 17:55 Source: patient Mode of arrival: Ambulatory Limitations: No Limitations - History of Present Illness Initial comments: Patient is a 28-year-old female with a history of chronic cannabis smoking heartbeat presents to the ED with acute onset persistent intractable nausea and vomiting and diarrhea with epigastric pain for the last 4 days worse in the last 24 hours. Patient denies dizziness, syncope, chest pain, shortness of breath, fever, chills, dysuria, urinary frequency and urgency, hematemesis, sore throat or headache. Patient admits to smoking marijuana every day but states that that is not an abscess at home with similar symptoms. MD complaint: nausea, vomiting, diarrhea, abdominal pain (Epigastric ) -: Sudden, days(s) (4) Description of Vomiting: food contents Description of Diarrhea: water Associated Abdominal Pain: Yes (epigastric ) Location: epigastric Radiation: none Severity: severe Pain Scale: 7 Quality: cramping, aching Consistency: intermittent Improves with: none Worsens with: eating, vomiting Context: possible food poisoning Associated Symptoms: denies other symptoms, loss of appetite, nausea/vomiting. denies: myalgias, chest pain, cough, diaphoresis, fever/chills, headaches, malaise, shortness of breath, syncope, weakness, other - Related Data Previous Rx's Medication Instructions Recorded Last Taken Type Pantoprazole [Protonix] 40 mg PO QDAY #30 tablet 12/01/18 Unknown Rx oxyCODONE /ACETAMINOPHEN [Percocet 1 tab PO Q6H PRN #14 tablet 12/01/18 Unknown Rx 5/325 mg] Dicyclomine [Bentyl] 20 mg PO Q6H PRN #24 tablet 06/28/19 Unknown Rx Famotidine [Pepcid] 20 mg PO Q12H #30 tablet 06/28/19 Unknown Rx Ondansetron [Zofran Odt] 4 mg PO Q6HR PRN #21 tab.rapdis 06/28/19 Unknown Rx Allergies Allergy/AdvReac Type Severity Reaction Status Date / Time No Known Allergies Allergy Verified 11/28/18 08:47 ED Review of Systems ROS: Stated complaint: VOMIT Other details as noted in HPI Constitutional: denies: chills, fever Eyes: denies: eye pain, eye discharge, vision change ENT: denies: ear pain, throat pain Respiratory: denies: cough, shortness of breath, wheezing Cardiovascular: denies: chest pain, palpitations Endocrine: no symptoms reported Gastrointestinal: abdominal pain, nausea, vomiting, diarrhea Genitourinary: denies: urgency, dysuria, discharge Musculoskeletal: denies: back pain, joint swelling, arthralgia Skin: denies: rash, lesions Neurological: denies: headache, weakness, paresthesias Psychiatric: denies: anxiety, depression Hematological/Lymphatic: denies: easy bleeding, easy bruising ED Past Medical Hx - Past Medical History Previous Medical History?: Yes Hx Congestive Heart Failure: No Hx Diabetes: No Hx GERD: Yes Hx Asthma: No Hx COPD: No Hx HIV: No - Surgical History Past Surgical History?: Yes Additional Surgical History: CYST REMOVED FROM CHEEK - Social History Smoking Status: Never Smoker Substance Use Type: None - Medications Home Medications: Home Medications Medication Instructions Recorded Confirmed Last Taken Type Pantoprazole [Protonix] 40 mg PO QDAY #30 tablet 12/01/18 Unknown Rx oxyCODONE /ACETAMINOPHEN [Percocet 1 tab PO Q6H PRN #14 tablet 12/01/18 Unknown Rx 5/325 mg] Dicyclomine [Bentyl] 20 mg PO Q6H PRN #24 tablet 06/28/19 Unknown Rx Famotidine [Pepcid] 20 mg PO Q12H #30 tablet 06/28/19 Unknown Rx Ondansetron [Zofran Odt] 4 mg PO Q6HR PRN #21 tab.rapdis 06/28/19 Unknown Rx ED Physical Exam - General Limitations: No Limitations General appearance: alert, in no apparent distress - Head Head exam: Present: atraumatic, normocephalic, normal inspection - Eye Eye exam: Present: normal appearance, PERRL, EOMI Pupils: Present: normal accommodation - ENT ENT exam: Present: normal exam, normal orophraynx, mucous membranes moist, TM's normal bilaterally, normal external ear exam - Neck Neck exam: Present: normal inspection, full ROM - Respiratory Respiratory exam: Present: normal lung sounds bilaterally. Absent: respiratory distress, wheezes, rhonchi, chest wall tenderness - Cardiovascular Cardiovascular Exam: Present: regular rate, normal rhythm, normal heart sounds. Absent: systolic murmur, diastolic murmur, rubs, gallop - GI/Abdominal GI/Abdominal exam: Present: soft, normal bowel sounds. Absent: tenderness, guarding, hyperactive bowel sounds, organomegaly - Extremities Exam Extremities exam: Present: normal inspection, full ROM, normal capillary refill - Back Exam Back exam: Present: normal inspection, full ROM. Absent: tenderness, CVA tenderness (L), muscle spasm, paraspinal tenderness, vertebral tenderness - Neurological Exam Neurological exam: Present: alert, oriented X3, CN II-XII intact, normal gait, reflexes normal - Psychiatric Psychiatric exam: Present: normal affect, normal mood - Skin Skin exam: Present: warm, dry, intact, normal color. Absent: rash ED Course Vital Signs 06/28/19 06/28/19 17:56 18:42 Temperature 97.4 F L 98.6 F Pulse Rate 74 64 Respiratory 22 20 Rate Blood Pressure 137/84 145/79 O2 Sat by Pulse 100 100 Oximetry ED Medical Decision Making - Lab Data Result diagrams: 06/28/19 19:57 06/28/19 19:57 - Medical Decision Making This is a 28-year-old female who presented to the ED with acute onset of persistent intermittent nausea and vomiting with diarrhea and epigastric pain for the last 4 days. Patient admits to smoking marijuana every day and also drinking alcohol daily. In the ED, patient is alert and oriented 3 and is not in distress. Lab test results were reviewed and are all nonactionable except for acute leukocytosis of 13,700. Patient was treated in the ED with antiemetics, antacids and also given normal saline 1 L IV bolus 1. On reevaluation, patient's nausea and vomiting is well-controlled with medications. Patient was discharged home and advised to maintain a clear liquid diet for 12- 24 hours and to follow-up with the primary care physician in 5-7 days for reevaluation. Patient was advised to return to the ED immediately if symptoms get worse. - Differential Diagnosis Viral gastroenteritis; GERD; Dehydration; cannabis vomiting Critical care attestation.: If time is entered above; I have spent that time in minutes in the direct care of this critically ill patient, excluding procedure time. ED Disposition Clinical Impression: Intractable cyclical vomiting with nausea, Viral gastroenteritis GERD (gastroesophageal reflux disease) Qualifiers: Esophagitis presence: without esophagitis Qualified Code(s): K21.9 - Gastro- esophageal reflux disease without esophagitis Disposition: TO HOME OR SELFCARE Is pt being admited?: No Does the pt Need Aspirin: No Condition: Stable Instructions: Abdominal Pain (ED), Acute Nausea and Vomiting (ED), Gastroesophageal Reflux Disease (ED) Additional Instructions: Maintain a clear liquid diet for 12-24 hours, take medication as needed for nausea and vomiting, drink plenty of fluids and follow-up radial primary care physician in 5-7 days for reevaluation. Return to the ED immediately if symptoms get worse. Prescriptions: Dicyclomine [Bentyl] 20 mg PO Q6H PRN #24 tablet PRN Reason: Pain , Severe (7-10) Famotidine [Pepcid] 20 mg PO Q12H #30 tablet Ondansetron [Zofran Odt] 4 mg PO Q6HR PRN #21 tab.rapdis PRN Reason: Nausea Referrals: [facility] [Outside] - 3-5 Days Forms: Work/School Release Form(ED) Time of Disposition: 23:11 Print Language: EMIRATI
[2019-06-28 23:37] VITALS: BP 132/76
== END 2019-06-28 23:35 | disposition home or self-care (01) ==
LOC: ED 15:59
DX: A08.4 Viral intestinal infection, unspecified (principal); K21.9 Gastro-esophageal reflux disease without esophagitis; G43.A1 Cyclical vomiting, in migraine, intractable; Z79.899 Other long term (current) drug therapy
CPT/HCPCS: 36415; 80053; 81001; 81025; 83690; 84484; 85025; 93005; 93010; 96361; 96374; 96375; 99283; J1200; J2270; J2405; J2765; J7030; Q0162

== ENCOUNTER 2022-01-06 10:20 | Emergency (ER) | payer SELFPAY ==
[2022-01-06 11:27] LABS: Basophils % (Auto) 0.3 % (0.0-1.8); Hematocrit 40.3 % (30.3-42.9); Hemoglobin 14.2 gm/dl (10.1-14.3); Lymphocytes % (Auto) 9.5 % (13.4-35.0); Mean Corpuscular HGB Conc 35 % (30-34); Mean Corpuscular Volume 93 fl (79-97); Monocytes # (Auto) 0.2 K/mm3 (0.0-0.8); Monocytes % (Auto) 1.6 % (0.0-7.3); Platelet Count 295 K/mm3 (140-440); Red Blood Count 4.33 M/mm3 (3.65-5.03)
[2022-01-06 11:33] LABS: Alanine Aminotransferase 16 units/L (7-56); Albumin 4.2 g/dL (3.9-5); BUN/Creatinine Ratio 16; Blood Urea Nitrogen 14 mg/dL (7-17); Calcium 9.6 mg/dL (8.4-10.2); Hemolysis Index 4
--- NOTE | 2022-01-06 13:13 | Emergency Department Report ---
ED N/V/D HPI - General Chief complaint: Nausea/Vomiting/Diarrhea Stated complaint: N/V Time Seen by Provider: 01/06/22 11:59 Source: patient, EMS Mode of arrival: Stretcher Limitations: No Limitations - History of Present Illness Initial comments: 31-year-old female who presents with nausea and vomiting for the last 2 to 3 days progressively getting worse. Last bowel movement was 3 days ago. She also reported starting menstrual period 3 days ago as well. Patient also mention diffuse abdominal discomfort. No fever or chills reported. Patient denies any urinary symptoms including dysuria or urinary urgency. No other modifying or associated factors reported. - Related Data Previous Rx's Medication Instructions Recorded Last Taken Type oxyCODONE /ACETAMINOPHEN [Percocet 1 tab PO Q6H PRN #14 tablet 12/01/18 Unknown Rx 5/325 mg] Dicyclomine [Bentyl] 20 mg PO Q6H PRN #24 tablet 06/28/19 Unknown Rx Famotidine [Pepcid] 20 mg PO Q12H #30 tablet 06/28/19 Unknown Rx Ondansetron [Zofran Odt] 4 mg PO Q6HR PRN #21 tab.rapdis 06/28/19 Unknown Rx Esomeprazole Magnesium 40 mg PO DAILY 30 Days #30 tab NS 01/06/22 Unknown Rx diphenhydrAMINE HCL [Sominex] 25 mg PO Q8H 5 Days #15 tab NS 01/06/22 Unknown Rx Allergies Allergy/AdvReac Type Severity Reaction Status Date / Time No Known Allergies Allergy Verified 11/28/18 08:47 ED Review of Systems ROS: Stated complaint: N/V Other details as noted in HPI Comment: All other systems reviewed and negative Gastrointestinal: abdominal pain, nausea, vomiting, constipation ED Past Medical Hx - Past Medical History Hx Congestive Heart Failure: No Hx Diabetes: No Hx GERD: Yes Hx Asthma: No Hx COPD: No Hx HIV: No - Surgical History Additional Surgical History: CYST REMOVED FROM [place] - Social History Smoking Status: Never Smoker Substance Use Type: None - Medications Home Medications: Home Medications Medication Instructions Recorded Confirmed Last Taken Type oxyCODONE /ACETAMINOPHEN [Percocet 1 tab PO Q6H PRN #14 tablet 12/01/18 Unknown Rx 5/325 mg] Dicyclomine [Bentyl] 20 mg PO Q6H PRN #24 tablet 06/28/19 Unknown Rx Famotidine [Pepcid] 20 mg PO Q12H #30 tablet 06/28/19 Unknown Rx Ondansetron [Zofran Odt] 4 mg PO Q6HR PRN #21 tab.rapdis 06/28/19 Unknown Rx Esomeprazole Magnesium 40 mg PO DAILY 30 Days #30 tab NS 01/06/22 Unknown Rx diphenhydrAMINE HCL [Sominex] 25 mg PO Q8H 5 Days #15 tab NS 01/06/22 Unknown Rx ED Physical Exam - General Limitations: No Limitations General appearance: alert, in no apparent distress - Head Head exam: Present: normal inspection - Eye Eye exam: Present: normal appearance Pupils: Present: normal accommodation - ENT ENT exam: Present: normal exam, normal orophraynx, mucous membranes dry - Neck Neck exam: Present: normal inspection, full ROM. Absent: tenderness - Respiratory Respiratory exam: Present: normal lung sounds bilaterally. Absent: respiratory distress, accessory muscle use - Cardiovascular Cardiovascular Exam: Present: regular rate, normal rhythm, normal heart sounds - GI/Abdominal GI/Abdominal exam: Present: soft, tenderness (mildly and diffused ), normal bowel sounds. Absent: distended - Extremities Exam Extremities exam: Present: normal inspection, normal capillary refill. Absent: pedal edema - Back Exam Back exam: Absent: tenderness - Neurological Exam Neurological exam: Present: alert, oriented X3 - Psychiatric Psychiatric exam: Present: normal affect, normal mood - Skin Skin exam: Present: warm, normal color ED Course Vital Signs 01/06/22 01/06/22 01/06/22 10:33 10:59 13:13 Temperature 98.3 F 98.5 F Pulse Rate 100 H 59 L 57 L Respiratory 18 14 12 Rate Blood Pressure 142/76 109/71 159/82 [Left] O2 Sat by Pulse 99 98 99 Oximetry - Reevaluation(s) Reevaluation #1: 01/06/22 16:04 Patient reports still feeling a little bit of nausea and specifically requested for promethazine--we will go ahead and give 25 mg p.o. x1--and reassess patient shortly ED Medical Decision Making - Lab Data Result diagrams: 01/06/22 10:56 01/06/22 10:56 - Radiology Data FINDINGS: LOWER CHEST: Mild distal esophageal wall thickening. LIVER: No significant abnormality. GALLBLADDER: No significant abnormality. BILE DUCTS: No significant abnormality. PANCREAS: No significant abnormality. SPLEEN: No significant abnormality. ADRENALS: No significant abnormality. RIGHT KIDNEY / URETER: No significant abnormality. LEFT KIDNEY / URETER: No significant abnormality. STOMACH / SMALL BOWEL: No significant abnormality. COLON: No significant abnormality. APPENDIX: No significant abnormality. PERITONEUM: No free fluid. No free air. No fluid collection. LYMPH NODES: No significant adenopathy. AORTA / ARTERIES: No significant abnormality. IVC / VEINS: No significant abnormality. URINARY BLADDER: No significant abnormality. REPRODUCTIVE ORGANS: No significant abnormality. ADDITIONAL FINDINGS: None. SKELETAL SYSTEM: No significant abnormality. IMPRESSION: 1. Mild distal esophageal wall thickening, which can be seen with reflux/esophagitis. Otherwise no significant abnormality. - Medical Decision Making Here with abdominal pain with nausea and vomiting even though this is likely gastroenteritis--differential could be but not limited to appendicitis, diverticulitis, cholecystitis, cholelithiasis, nephrolithiasis, gastritis, pancreatitis, duodenitis, colitis, irritable bowel syndrome, cystitis, so in order to rule this out we will go ahead and order routine acute abdomen that include CBC, CMP, urinalysis, and CT imaging of the abdomen/pelvic. In the meantime will go ahead and start ivf ns 1L bolus x 1 while waiting for the above labs Lab reviewed to be unremarkable for any sign of infection including urinalysis- Critical care attestation.: If time is entered above; I have spent that time in minutes in the direct care of this critically ill patient, excluding procedure time. ED Disposition Clinical Impression: Esophagitis Nausea and vomiting Qualifiers: Vomiting type: unspecified Qualified Code(s): R11.2 - Nausea with vomiting, unspecified Abdominal pain Qualifiers: Abdominal location: generalized Qualified Code(s): R10.84 - Generalized abdominal pain GERD (gastroesophageal reflux disease) Qualifiers: Esophagitis presence: with esophagitis Esophagitis bleeding: without hemorrhage Qualified Code(s): K21.00 - Gastro-esophageal reflux disease with esophagitis, without bleeding Disposition: 01 HOME / SELF CARE / HOMELESS Is pt being admited?: No Does the pt Need Aspirin: No Condition: Stable Instructions: Food Choices for Gastroesophageal Reflux Disease, Adult, [id number], Nausea and Vomiting, Adult, [id number], Abdominal Pain, Adult, [id number] Additional Instructions: Avoid any spicy or heavy fatty male to prevent worsening of your symptoms Take your new antiacid medication as prescribed to continue to help your symptoms Increase your daily fluid to help your hydration Please call and follow-up with your primary doctor in the next 3 to 5 days for progress Please do not hesitate to call or return to emergency room if your symptoms worsen Prescriptions: Esomeprazole Magnesium 40 mg PO DAILY 30 Days #30 tab NS diphenhydrAMINE HCL [Sominex] 25 mg PO Q8H 5 Days #15 tab NS Referrals: PRIMARY CARE, [Primary Care Provider] - 3-5 Days Time of Disposition: 16:11
[2022-01-06 13:16] VITALS: BP 159/82
[2022-01-06] MEDS ORDERED: MORPHINE 2 MG/1 ML INJ IV ONE (13:32)
[2022-01-06] MEDS ORDERED: ONDANSETRON 4 MG/2 ML INJ IV ONE (13:32)
[2022-01-06 13:40] LABS: Color,Urine Yellow (Yellow)
[2022-01-06 13:43] LABS: Mucus,Urine FEW /HPF
[2022-01-06 13:56] LABS: Amphetamine Screen,Urine PRESUMPTIVE NEGATIVE; Benzodiazepines Screen,Urine PRESUMPTIVE NEGATIVE; Cannabinoid Screen,Urine PRESUMPTIVE POSITIVE; Cocaine Screen,Urine PRESUMPTIVE NEGATIVE; Methadone Screen,Urine PRESUMPTIVE NEGATIVE; Opiate Screen,Urine PRESUMPTIVE NEGATIVE
--- NOTE | 2022-01-06 14:45 | Cat Scan Report ---
CT ABDOMEN AND PELVIS WITHOUT CONTRAST INDICATION / CLINICAL INFORMATION: abd pain. TECHNIQUE: Axial CT images were obtained through the abdomen and pelvis without IV contrast. All CT scans at this location are performed using CT dose reduction for ALARA by means of automated exposure control. COMPARISON: CT dated 11/29/2018 was not available for comparison at the time of interpretation FINDINGS: LOWER CHEST: Mild distal esophageal wall thickening. LIVER: No significant abnormality. GALLBLADDER: No significant abnormality. BILE DUCTS: No significant abnormality. PANCREAS: No significant abnormality. SPLEEN: No significant abnormality. ADRENALS: No significant abnormality. RIGHT KIDNEY / URETER: No significant abnormality. LEFT KIDNEY / URETER: No significant abnormality. STOMACH / SMALL BOWEL: No significant abnormality. COLON: No significant abnormality. APPENDIX: No significant abnormality. PERITONEUM: No free fluid. No free air. No fluid collection. LYMPH NODES: No significant adenopathy. AORTA / ARTERIES: No significant abnormality. IVC / VEINS: No significant abnormality. URINARY BLADDER: No significant abnormality. REPRODUCTIVE ORGANS: No significant abnormality. ADDITIONAL FINDINGS: None. SKELETAL SYSTEM: No significant abnormality. IMPRESSION: 1. Mild distal esophageal wall thickening, which can be seen with reflux/esophagitis. Otherwise no si gnificant abnormality. Signer Name: Kamran Adame MD Signed: 01/06/2022 2:41 PM Workstation Name: [email or web address]
[2022-01-06] MEDS ORDERED: PROMETHAZINE 25 MG TAB PO ONE (15:59)
== END 2022-01-06 16:38 | disposition home or self-care (01) ==
LOC: ED 10:20
DX: K21.9 Gastro-esophageal reflux disease without esophagitis (principal); K20.90 Esophagitis, unspecified without bleeding; R11.2 Nausea with vomiting, unspecified; R10.9 Unspecified abdominal pain; Z79.899 Other long term (current) drug therapy
CPT/HCPCS: 36415; 74176; 80053; 80307; 81001; 83690; 84703; 85025; 96374; 96375; 99284; J2270; J2405; Q0169